=== PATIENT | female | born 1945 | race Caucasian/White ===

== ENCOUNTER 2018-07-30 15:54 | Observation (INO) | payer MEDICARE ==
[~2018-07-30] VITALS: Ht 152.4 cm; Wt 72.1 kg
[~2018-07-30 15:54] MED LIST: LEVOTHYROXINE50 MCG PO; NORCO 7.5-3251 EACH PO; PANTOPRAZOLE SO40 MG PO
[2018-07-30] MEDS ORDERED: SODIUM CHLORIDE 0.9% 1000ML 1,000 ML IV STA (16:06)
[2018-07-30 17:12] LABS: BASOPHILS # (AUTO) 0.1 (0.0-0.1); BASOPHILS % 0.5 % (0.0-1.0); EOSINOPHILS # (AUTO) 0.1 (0.0-0.4); EOSINOPHILS % 0.6 % (0.0-6.0); HEMOGLOBIN 7.9 g/dL (12.0-16.0); LYMPHOCYTES # (AUTO) 1.1 (1.0-3.2); LYMPHOCYTES % 9.4 % (18.0-39.1); MEAN CORPUSCULAR HEMOGLOBIN 24.4 pg (28-32); MEAN CORPUSCULAR HGB CONC 30.4 g/dL (31-35); MEAN CORPUSCULAR VOLUME 80.2 fL (81-99); MONOCYTES % 8.7 % (4.4-11.3); NEUTROPHILS # (AUTO) 9.2 (2.1-6.9); NEUTROPHILS % 80.5 % (38.7-80.0); PLATELET COUNT 338 x10e3/uL (140-360); RED BLOOD COUNT 3.24 x10e6/uL (3.6-5.1); RED CELL DISTRIBUTION WIDTH 16.1 % (11.7-14.4)
[2018-07-30 17:18] LABS: BILIRUBIN,URINE NEGATIVE (NEGATIVE); CLARITY,URINE SL CLOUDY (CLEAR); COLOR,URINE YELLOW (YELLOW); KETONES,URINE 1+ (NEGATIVE); LEUKOCYTE ESTERASE ,URINE TRACE (NEGATIVE); NITRITE,URINE NEGATIVE (NEGATIVE); PROTEIN,URINE DIPSTICK NEGATIVE (NEGATIVE); URINE UROBILINOGEN 0.2 mg/dL (0.2 - 1)
[2018-07-30 17:30] LABS: EPITHELIAL CELLS,URINE FEW /LPF; MUCUS,URINE MODERATE (RARE); WBC,URINE (MAN) 0-5 /HPF (0-5)
[2018-07-30 18:06] LABS: ALANINE AMINOTRANSFERASE 16 IU/L (0-55); ALBUMIN 3.4 g/dL (3.5-5.0); ALBUMIN/GLOBULIN RATIO 1.4 (0.8-2.0); ALKALINE PHOSPHATASE 50 IU/L (40-150); ANION GAP 11.9 mmol/L (8-16); BLOOD UREA NITROGEN 17 mg/dL (7-26); BUN/CREATININE RATIO 23 (6-25); CALCIUM 8.7 mg/dL (8.4-10.2); CARBON DIOXIDE 23 mmol/L (22-29); CHLORIDE 104 mmol/L (98-107); CREATINE KINASE 44 IU/L (29-168); CREATININE, SERUM 0.74 mg/dL (0.57-1.11); EST GLOMERULAR FILTRATION RATE > 60 ML/MIN (60-); GLUCOSE 98 mg/dL (74-118); LIPASE 13 U/L (8-78); POTASSIUM 3.9 mmol/L (3.5-5.1); SODIUM 135 mmol/L (136-145)
[2018-07-30] MEDS ORDERED: LEVOTHYROXINE75 MCG PO (18:39)
[2018-07-30] MEDS ORDERED: SODIUM CHLORIDE 0.9% 250ML 250 ML IV ONE (19:15)
[2018-07-30] MEDS ORDERED: FUROSEMIDE INJ 10 MG/ML 2 ML VIAL IV PRN (19:15)
[2018-07-30] MEDS ORDERED: IOPAMIDOL 370 MG/ML 200 ML INFUS..BTL INJ ONE (19:20)
[2018-07-30] MEDS ORDERED: SODIUM CHLORIDE 0.9% 50ML 50 ML ONE (19:20)
--- NOTE | 2018-07-30 19:25 | Diagnostic Imaging Report ---
CT Abdomen And Pelvis with Intravenous Contrast INDICATION: Right lower quadrant pain for several days TECHNIQUE: Thin collimation axial images obtained from the diaphragm to the level of the pubic symphysis following the uneventful administration of 100 cc of low osmolar, nonionic intravenous contrast. RADIATION DOSE: Total DLP: 362.4 mGy*cm Estimated effective dose: (DLP x 0.015 x size factor) mSv CTDIvol has been reviewed. It is below the limits set by the Radiation Protocol Committee (RPC). COMPARISON: None. ABDOMEN FINDINGS: Lung Bases: Mild bibasilar atelectasis. Moderate-sized hiatal hernia. Descending thoracic aorta is ectatic but not aneurysmally dilated. Liver: Decreased attenuation. Multiple scattered low attenuating lesions measure up to 10 mm. No enhancing lesions. Gallbladder: Present and appears normal. No biliary ductal dilatation. Pancreas: Mild fatty atrophy without mass or ductal dilatation. Spleen: Normal in size. No evidence of mass.. Adrenal Glands: No evidence for mass. Kidneys: Right: Fullness of the collecting system may be the result of peripelvic cysts. There is normal enhancement of the parenchyma. No perinephric inflammation. Left: Fullness of the collecting system may be the result of peripelvic cysts. Normal enhancement of the parenchyma without perinephric inflammation. A few subcentimeter low attenuating cortical lesions have the appearance of cysts. Lymph Nodes: No enlarged abdominal or retroperitoneal lymph nodes.. Aorta: Ectatic but not aneurysmally dilated. There is a retroaortic left renal vein. PELVIS FINDINGS: Bowel: Stomach: Normal. Small Bowel: Normal in caliber with normal wall thickness. Large Bowel: Mild to moderate burden of stool.. Appendix: Present and dilated to 1.2 cm. There is mucosal hyperemia and periappendiceal fat inflammation. No fluid collection. Bladder: Normal. Ureters: Nondilated. The uterus is present and appears normal. A right ovarian cyst measures 22 mm. No free fluid. No free air. Bones: Mild degenerative changes of the spine. No listhesis or compression deformities. There are mild degenerative changes of the hips. No focal osseous lesions. Soft tissues: Bilateral breast prostheses. There is rupture of the left prosthesis and calcifications surrounding the implant. IMPRESSION: 1. Acute appendicitis. No abscess. No perforation. 2. Prominence of the renal collecting systems may be the result of peripelvic cysts. This can be confirmed with CT dedicated to the kidneys. 3. Moderate-sized hiatal hernia. 4. Low attenuating hepatic lesions are too small to characterize. 5. Rupture of left breast prosthesis. Signed by: Dr. Dianne Fournier MD on 07/30/2018 7:21 PM
[2018-07-30] MEDS ORDERED: SODIUM CHLORIDE 0.9% 1000ML 1,000 ML ONE (19:43)
[2018-07-30] MEDS ORDERED: ACETAMINOPHEN 1000 MG/100 ML IV PRN (19:45)
[2018-07-30] MEDS ORDERED: ONDANSETRON HCL INJ 2 MG/ML VIAL IV PRN (19:45)
[2018-07-30] MEDS ORDERED: MORPHINE SULFATE 2 MG/ML SYR IV PRN (19:45)
[2018-07-30] MEDS: SODIUM CHLORIDE 0.9% 1000ML 1,000 ML IV SCH (19:50)
[2018-07-30] MEDS ORDERED: MORPHINE SULFATE INJ 4 MG/ML INJ IV PRN (20:00)
[2018-07-30] MEDS: PIPER-TAZ 3.375 GM 50 ML IV SCH (20:19)
[2018-07-30 20:35] VITALS: BP 103/50
[2018-07-30 20:50] LABS: FERRITIN 4.4 ng/mL (4.63-204.00)
[2018-07-30 20:56] VITALS: BP 103/50
[2018-07-30 21:04] VITALS: BP 103/50
[2018-07-30] MEDS ORDERED: SODIUM CHLORIDE 0.9% 250ML 250 ML ONE (22:13)
[2018-07-31] VITALS (8 sets, daily range): BP systolic 102–120; BP diastolic 53–58
[2018-07-31] MEDS ORDERED: SODIUM CHLORIDE 0.9% 250ML 250 ML ONE (00:59)
[2018-07-31] MEDS: SODIUM CHLORIDE 0.9% 1000ML 1,000 ML IV SCH ×2 (03:45→12:22)
[2018-07-31] MEDS: PIPER-TAZ 3.375 GM 50 ML IV SCH ×3 (04:13→20:49)
[2018-07-31 05:43] LABS: BASOPHILS # (AUTO) 0.1 (0.0-0.1); BASOPHILS % 0.7 % (0.0-1.0); EOSINOPHILS # (AUTO) 0.2 (0.0-0.4); EOSINOPHILS % 2.1 % (0.0-6.0); HEMATOCRIT 30.1 % (34.2-44.1); HEMOGLOBIN 9.4 g/dL (12.0-16.0); LYMPHOCYTES # (AUTO) 1.7 (1.0-3.2); LYMPHOCYTES % 18.5 % (18.0-39.1); MEAN CORPUSCULAR HEMOGLOBIN 25.7 pg (28-32); MEAN CORPUSCULAR HGB CONC 31.2 g/dL (31-35); MEAN CORPUSCULAR VOLUME 82.2 fL (81-99); MONOCYTES # (AUTO) 0.9 (0.2-0.8); MONOCYTES % 9.6 % (4.4-11.3); NEUTROPHILS # (AUTO) 6.2 (2.1-6.9); NEUTROPHILS % 68.9 % (38.7-80.0); PLATELET COUNT 266 x10e3/uL (140-360); RED BLOOD COUNT 3.66 x10e6/uL (3.6-5.1); RED CELL DISTRIBUTION WIDTH 16.6 % (11.7-14.4)
[2018-07-31 06:05] LABS: ALANINE AMINOTRANSFERASE 13 IU/L (0-55); ALBUMIN 3.1 g/dL (3.5-5.0); ALBUMIN/GLOBULIN RATIO 1.2 (0.8-2.0); ALKALINE PHOSPHATASE 47 IU/L (40-150); BLOOD UREA NITROGEN 12 mg/dL (7-26); BUN/CREATININE RATIO 16 (6-25); CALCIUM 8.7 mg/dL (8.4-10.2); CARBON DIOXIDE 23 mmol/L (22-29); CHLORIDE 109 mmol/L (98-107); CREATININE, SERUM 0.74 mg/dL (0.57-1.11); EST GLOMERULAR FILTRATION RATE > 60 ML/MIN (60-); GLUCOSE 95 mg/dL (74-118); SODIUM 140 mmol/L (136-145)
--- NOTE | 2018-07-31 06:52 | Consultation ---
DATE OF CONSULTATION: July 31, 2018 HISTORY OF PRESENT ILLNESS: Patient is a 72-year-old female, presents to the hospital with complaints of abdominal pain. Says the pain started about 36 hours ago, was generalized and became localized right lower quadrant. She denies, nausea or vomiting, but the pain persisted. She came to emergency room, where evaluation of CT of the abdomen revealed findings suggestive of acute appendicitis. She has not had similar pains in the past. PAST MEDICAL HISTORY: Otherwise unremarkable. Only previous surgery was spinal surgery for her lumbar spine. She has no chronic medical problems. CURRENT MEDICATIONS: None. ALLERGIES: NO KNOWN. FAMILY HISTORY: Noncontributory. SOCIAL HISTORY: The patient does not smoke cigarettes, does not drink alcohol. REVIEW OF SYSTEMS: As stated above otherwise was negative. PHYSICAL EXAMINATION VITALS: Normal. GENERAL: The patient is awake and alert, in no distress. HEENT: Reveals no scleral icterus. NECK: Has no masses. LUNGS: Equal breath sounds, are clear bilaterally. CARDIAC: Regular rate and rhythm. Normal S1, S2, without murmur S3. There is no jugular venous distention. ABDOMEN: Tender in right lower quadrant with mild signs of peritonitis, right lower quadrant. There is no mass. There is no distension. EXTREMITIES: Warm. There is no edema. Pulses are palpable. NEUROLOGIC: Exam is intact. CT of abdomen reveals findings suggesting acute appendicitis. ASSESSMENT: A 72-year-old female with acute appendicitis. She will benefit from appendectomy. Plan is scheduled for today. Procedure was explained to the patient including risks, benefits, and alternatives. She was found to be anemic also. This will probably need to be evaluated after the surgery is done. Thank you for asking me to see Ms. Vang. Job#: [id number] CQ
[2018-07-31] MEDS ORDERED: LEVOTHYROXINE SODIUM 75 MCG TAB PO SCH (09:00)
--- NOTE | 2018-07-31 09:49 | History and Physical ---
CHIEF COMPLAINT: Right lower quadrant abdominal pain ongoing times 1 day. HISTORY OF PRESENT ILLNESS: This is a 72-year-old female with chief complaint of right lower quadrant abdominal pain that began 2 days ago. Patient reports on Saturday evening after she ate, she felt some abdominal pain more radiated toward the right lower quadrant. She initially thought it was some indigestion which did not resolve. The following day, she still continued complaining of right lower quadrant excruciating pain and came to the ED for further evaluation. She denies any recent sickness, cough, congestion, fever or any chest pain. Also denies any diarrhea, nausea or vomiting. While here, imaging studies were consistent with acute appendicitis in which general surgery has been consulted. She has been afebrile and started on IV antibiotics. Patient was seen and evaluated at bedside on the medical floor, currently doing well with no other complaints at this time. REVIEW OF SYSTEMS: Pertinent positives: Decreased oral intake, right lower quadrant abdominal pain. Pertinent negatives: Denies any chest pain, palpitations, nausea, vomiting, diarrhea, dysuria, hematuria, frequency, urgency, lightheadedness, dizziness, headache, shortness of breath, cough, congestion, fever or any other complaints. The rest of the 14-point review of systems have been reviewed with the patient and are negative. ALLERGIES: NO KNOWN DRUG ALLERGIES. HOME MEDICATIONS: She takes levothyroxine 75 mcg daily. PAST MEDICAL HISTORY: Hypothyroidism. SURGICAL HISTORY: None FAMILY HISTORY: Hypertension, diabetes. SOCIAL HISTORY: No drugs. No alcohol. Does not smoke. Good social support. VITAL SIGNS: Temperature is 97.4, pulse 68, respiratory rate is 18, blood pressure 120/58. Pulse ox 97% on room air. LAB FINDINGS: White count is 8.9, hemoglobin 9.4, hematocrit 30, platelets 266. Chemistry: Sodium 140, potassium 4, chloride 109, bicarb 23, anion gap of 12, BUN 12, creatinine 0.74, glucose 95, calcium 8.7. Iron saturation is 4%. LFTs were normal. Albumin 3.1, and lipase is 13. Urinalysis is negative. MICROBIOLOGY: None. IMAGING STUDIES: Impression shows acute appendicitis. No abscess of perforation. There are some peripelvic cysts that need to have outpatient followup. Moderate-size hiatal hernia. There are some low-attenuating hepatic lesions that are too small to characterize. Rupture of the left breast prosthesis. PHYSICAL EXAMINATION GENERAL: Not in acute distress. Alert and oriented times 3. Cooperative on examination. HEENT: Head is normocephalic and atraumatic. Eyes: Pupils are equal and reactive to light bilaterally. The extraocular movements are intact bilaterally. NECK: Supple. Good range of motion. THROAT: No evidence of any erythema or exudates in the posterior pharynx, has poor dentition. PULMONARY: Clear to auscultation bilaterally. No wheezing, no rales, no rhonchi, no crackles appreciated. CARDIOVASCULAR: Positive S1, S2. No murmurs, rubs or gallops appreciated. ABDOMEN: Tenderness to palpation in the right lower quadrant. Bowel sounds were present. She had some rebound on exam. MUSCULOSKELETAL: Strength is 5/5 throughout. No evidence of any muscle deficit on examination. No weakness appreciated. NEUROLOGIC: Cranial nerves II through XII are grossly intact. No evidence of any neurological deficit. SKIN: Intact, warm to touch. Good cap refill. PSYCHIATRIC: Normal affect and mood. EXTREMITIES: No edema with good range of motion throughout. IMPRESSION 1. Acute appendicitis. 2. Iron deficiency anemia. 3. Hypothyroidism. 4. Decreased oral intake. ASSESSMENT AND PLAN: At this time, I will continue with IV fluids, pain control, n.p.o. She is scheduled for a laparoscopic appendectomy later this afternoon. She had received 2 units of packed RBCs, and her iron study is consistent with iron deficiency anemia. At this time, her blood count is good after the blood transfusion. We are going to resume her levothyroxine dose at home. We are going to have pain control, antinausea medication, n.p.o. and IV fluids for now. Once she is done with surgery, she can go back on a regular diet. She does have these hepatic attenuations seen on imaging studies, and we are not sure exactly what they are. We discussed this with the patient, and she is to follow up as an outpatient with the primary care physician for further evaluation and care. She verbalized an understanding. Job#: [id number]
[2018-07-31] MEDS ORDERED: MIDAZOLAM HCL 2 MG/2 ML VIAL ONE (15:04)
[2018-07-31] MEDS ORDERED: FENTANYL CITRATE/PF 100MCG/2 ML INJ ONE (15:04)
[2018-07-31] MEDS ORDERED: BUPIVACAINE HCL 0.5% INJ 30 ML VIAL INJ ONE (15:13)
[2018-07-31] MEDS ORDERED: MORPHINE SULFATE INJ 4 MG/ML INJ IV PRN (18:15)
[2018-07-31] MEDS ORDERED: HYDROCODONE/APAP 5MG-325MG TAB PO PRN (18:15)
[2018-07-31] MEDS ORDERED: ONDANSETRON HCL INJ 2 MG/ML VIAL IV PRN (18:15)
--- NOTE | 2018-07-31 20:07 | Operative Report ---
DATE OF PROCEDURE: July 31, 2018 PREOPERATIVE DIAGNOSIS: Acute appendicitis. POSTOPERATIVE DIAGNOSIS: Acute appendicitis. PROCEDURE: Diagnostic laparoscopy, laparoscopic appendectomy. COSMETIC SALES ASSISTANT: None. ANESTHESIA: General endotracheal. INDICATIONS AND FINDINGS: Patient is a 72-year-old female who presented with complaints of abdominal pain localized to the right lower quadrant. At surgery, the patient was found to have an acutely inflamed appendix. TECHNIQUE: After adequate general endotracheal anesthesia, with the patient in the supine position, the abdomen was prepped and draped in a sterile fashion with ChloraPrep solution. Skin in the umbilicus was infiltrated with 0.5% Marcaine. Incision was made in the umbilicus. The abdominal wall was elevated, and a Veress needle was introduced. Pneumoperitoneum was then created. A 10-mm trocar and cannula were then passed through the umbilical wound. Laparoscopic camera was introduced. Initial laparoscopy revealed an inflamed appendix. No free fluid was seen. Liver appeared normal. Stomach appeared normal. The bowel that was seen appeared normal. A 12-mm trocar and cannula were placed suprapubically, and a 5-mm trocar and cannula were placed in the right upper quadrant. These were placed under direct vision. Cecum was elevated. There were some fibrinous adhesions over the appendix which were lysed. A window was created between the base of the appendix and mesoappendix. Base of the appendix was divided close to the cecum with the Endo PADMAJA stapler. Mesoappendix was also divided with an Endo PADMAJA stapler, freeing the appendix completely. The appendix was then placed into an Endo pouch and brought out through the suprapubic cannula. Care was taken that it did not touch the abdominal wall. The area of the appendectomy was inspected for hemostasis, which was seen to be adequate. It was irrigated with saline. All fluid aspirated and inspected for hemostasis, which was seen to be adequate. It was irrigated once again with saline. All fluid aspirated from above the liver, from the right side of the abdomen, and from the pelvis inspected for hemostasis, which was seen to be adequate. Instruments and cannulas were then removed. Pneumoperitoneum was evacuated. Wounds were then closed. Fascia in the umbilical and suprapubic wound closed with #0 Vicryl. Skin to all wounds closed with giselle. Sterile dressings applied to each wound. Patient tolerated the procedure well. Estimated blood loss was 10 mL. There were no complications. All counts were correct. Patient was taken to the recovery room in satisfactory condition. Job#: [id number] cc:LINDA EVANS MD
[2018-08-01 00:06] VITALS: BP 102/53
[2018-08-01] MEDS: SODIUM CHLORIDE 0.9% 1000ML 1,000 ML IV SCH ×2 (03:45→04:09)
[2018-08-01] MEDS: PIPER-TAZ 3.375 GM 50 ML IV SCH (03:45)
[2018-08-01 04:00] VITALS: BP 104/51
[2018-08-01 05:50] LABS: BASOPHILS % 0.2 % (0.0-1.0); HEMATOCRIT 31.6 % (34.2-44.1); HEMOGLOBIN 9.6 g/dL (12.0-16.0); LYMPHOCYTES # (AUTO) 0.6 (1.0-3.2); LYMPHOCYTES % 6.8 % (18.0-39.1); MEAN CORPUSCULAR HEMOGLOBIN 25.3 pg (28-32); MEAN CORPUSCULAR HGB CONC 30.4 g/dL (31-35); MEAN CORPUSCULAR VOLUME 83.4 fL (81-99); MONOCYTES # (AUTO) 0.4 (0.2-0.8); MONOCYTES % 3.8 % (4.4-11.3); NEUTROPHILS # (AUTO) 8.1 (2.1-6.9); NEUTROPHILS % 88.7 % (38.7-80.0); PLATELET COUNT 287 x10e3/uL (140-360); RED BLOOD COUNT 3.79 x10e6/uL (3.6-5.1); RED CELL DISTRIBUTION WIDTH 16.1 % (11.7-14.4)
[2018-08-01] MEDS ORDERED: LEVOTHYROXINE SODIUM 75 MCG TAB PO SCH (06:00)
[2018-08-01 06:28] LABS: BLOOD UREA NITROGEN 15 mg/dL (7-26); BUN/CREATININE RATIO 19 (6-25); CALCIUM 8.7 mg/dL (8.4-10.2); CARBON DIOXIDE 21 mmol/L (22-29); CHLORIDE 110 mmol/L (98-107); CREATININE, SERUM 0.78 mg/dL (0.57-1.11); EST GLOMERULAR FILTRATION RATE > 60 ML/MIN (60-); GLUCOSE 123 mg/dL (74-118); SODIUM 140 mmol/L (136-145)
[2018-08-01 09:19] VITALS: BP 109/50
[2018-08-01] MEDS ORDERED: CIPRO500 MG PO (10:27)
[2018-08-01] MEDS ORDERED: FLAGYL250 MG PO (10:28)
--- NOTE | 2018-08-01 10:50 | Discharge Summary ---
FINAL DISCHARGE DIAGNOSES 1. Laparoscopic appendectomy. 2. Iron deficiency anemia. 3. Hypothyroidism. TIP CEMENTER: General surgery. VITAL SIGNS: Temperature is 97.8, pulse 65, respiratory rate 18, blood pressure 109/50. Pulse ox is 97% on room air. LAB FINDINGS: White count 9.1, hemoglobin 9.6, hematocrit 32, platelets 287. Chemistry: Sodium 140, potassium 4, chloride 110, bicarb 21, anion gap 13, BUN 15, creatinine 0.78, glucose 123, calcium 8.7. Troponins were all negative. Lipase was normal. Urinalysis negative. IMAGING STUDIES: CT abdomen and pelvis shows acute appendicitis. No abscess. No perforation. Moderate size hiatal hernia. She does have evidence of low-attenuating hepatic lesions that are too small to characterize but need outpatient followup. I discussed this with the patient at bedside, and she will follow up with her primary care physician with repeat imaging and GI evaluation. HOSPITAL COURSE: This is a 72-year-old female who came into the ED with complaints of right lower quadrant abdominal pain, nausea, vomiting, decreased oral intake. Patient was admitted under observation, and general surgery was consulted. Imaging studies were consistent with acute appendicitis. Patient is status post laparoscopic appendectomy performed on 07/31/[address] Del Real of general surgery. Postoperatively, the patient was doing well. She was tolerating a regular diet. She was on IV antibiotics while she was here. When she came in, the patient was anemic and had a hemoglobin of 7.9. She was given 2 units of packed RBCs with hemoglobin of 9.6. Patient otherwise was doing well and tolerating diet well. Her CT imaging showed evidence of some hepatic attenuation, which I discussed this with her at bedside, and she verbalized she will follow with her PCP with repeat imaging and outpatient followup with the GI specialist. Otherwise, the patient was doing well with no other complaints. She was back to baseline. On the day of discharge, vital signs were stable. Labs were reviewed and stable. The patient was seen, evaluated and examined thoroughly on the day of discharge. No other complaints. Patient verbalized an understanding and agrees with plan of care to follow up accordingly as an outpatient with primary care physician in 1 week and general surgery in 7 to 10 days. MEDICATIONS: See med reconciliation form. Patient will be discharged on oral Cipro and Flagyl for 7 additional days. Patient refused any pain medication for discharge home. DISPOSITION: To home. CONDITION: Stable. DIET: Heart healthy. FOLLOWUP: With your PCP in 1 week, general surgery in 7 to 10 days. In the event of any worsening symptoms, patient advised to come back to the ED for further evaluation. Discharge summary took greater than 35 minutes. LINDA EVANS MD Job#: [id number]
[2018-08-01] MEDS ORDERED: ONDANSETRON HCL INJ 2 MG/ML VIAL IV ONE (11:47)
[2018-08-01] MEDS ORDERED: SEVOFLURANE INHAL SOLN 250 ML PEN BTL INH ONE (11:47)
[2018-08-01] MEDS ORDERED: LIDOCAINE HCL 2% LOCAL INJ 5 ML SDV VIAL INJ ONE (11:47)
[2018-08-01] MEDS ORDERED: KETOROLAC TROMETHAMINE 30 MG/ML VIAL IV ONE (11:47)
[2018-08-01] MEDS ORDERED: DEXAMETHASONE SOD PHOS INJ 4 MG/ML VIAL IV ONE (11:47)
[2018-08-01] MEDS ORDERED: PROPOFOL IV EMULSION 10 MG/ML 20 ML VIAL IV ONE (11:47)
[2018-08-01] MEDS ORDERED: ROCURONIUM BROMIDE 10 MG/ML 5ML VIAL IV ONE (11:47)
== END 2018-08-01 11:48 | disposition home or self-care (01) ==
LOC: ER 15:54 → ERHOLD 19:50 → INTOOBSV 19:50 → MED/SURG 20:37
PROVIDERS: ADMIT Internal Medicine; ATTEND Internal Medicine
DX: K35.3 Acute appendicitis with localized peritonitis (principal); D62 Acute posthemorrhagic anemia; E03.9 Hypothyroidism, unspecified; Z83.3 Family history of diabetes mellitus; Z82.49 Family history of ischemic heart disease and other diseases of the circulatory system
CPT/HCPCS: 36415 ×3; 36430 ×3; 44970; 74177; 80048; 80053 ×2; 81001; 82270; 82550; 82553; 82728; 82948; 83540; 83690; 84466; 84484; 85025 ×3; 86850; 86900; 86920; 88304; 96374; 99284; G0378 ×3; J1100; J1885; J2001; J2250; J2405; J2543 ×3; J7030 ×3; J7050 ×2; P9016 ×2; Q9967